=== PATIENT | female | born 1970 | race Caucasian/White ===

== ENCOUNTER 2019-08-19 07:23 | Outpatient (CLI) | payer OTHER, SELFPAY ==
--- NOTE | 2019-08-19 | ECHO_ITS ---
Patient Info Name: Tanvi Chanel Age: 48 years : 1970 Gender: Female Ht: 69 in Wt: 250 lbs BSA: 2.40 m2 HR: 76 bpm BP: 100 / 80 mmHg Heart Rhythm: Sinus Rhythm Technical Quality: Good Exam Date: 08/19/2019 8:04 AM [facility]am [facility] Patient Status: Outpatient Admit Date: 08/19/2019 Staff Ordering Physician: PHYSICIAN NOT ON STAFF, NONSTAFF Machine Sole Leveler: Ela Hoskins RDCS Attending Provider: PHYSICIAN NOT ON STAFF, NONSTAFF Exam Type: CA echo doppler color flow Study Info Indications R00.2 - Palpitations Complete two-dimensional, color flow and Doppler transthoracic echocardiogram is performed. Summary 1. Essentially unremarkable 2D/Doppler echocardiogram. Left Ventricle Left ventricular chamber dimension is normal. Left ventricular systolic function is normal, estimated at 60-65%. The left ventricular diastolic function is normal. Left Atria Left atrial chamber dimension is normal. Right Atria Right atrial chamber dimension is normal. Aortic Valve The aortic valve is trileaflet. Pulmonic Valve The pulmonic valve is normal. Mitral Valve The mitral valve has normal leaflets. Tricuspid Valve The tricuspid valve leaflets are normal. Pericardium/Pleural The pericardium appears normal. Aorta The aortic root size at the sinus of Valsalva is normal. Left Ventricular Outflow Tract Name Value Normal LVOT 2D LVOT Diameter 1.9 cm LVOT Doppler LVOT Peak Gradient 6 mmHg LVOT Mean Gradient 3 mmHg LVOT VTI 25 cm LVOT VTI/AV VTI Ratio 0.9 LVOT Stroke Volume 71 ml LVOT CO 4.9 l/min LVOT CI 2.0 l/min/m2 Pulmonic Valve Name Value Normal RVOT Doppler RVOT Peak Gradient 3 mmHg PV Doppler PV Peak Gradient 4 mmHg Mitral Valve Name Value Normal MV Doppler MV Decel Glenn 576 cm/s2 MV PHT 33 ms MV Area (PHT) 6.6 cm2 4.0-5.0 MV Diastolic Function MV E Peak Velocity 66 cm/s MV A Peak Velocity 51 cm/s MV E/A 1.3 MV Decel Time 115 ms Tricuspid Valve
== END 2019-08-19 07:24 | disposition home or self-care (01) ==
DX: R00.2 Palpitations (principal)
CPT/HCPCS: 93306

== ENCOUNTER 2019-10-08 10:00 | Outpatient (RCR) | payer OTHER, SELFPAY ==
--- NOTE | 2019-08-15 13:29 | PTOPEVAL ---
INITIAL PHYSICAL THERAPY EVALUATION and PLAN OF CARE Thank you for referring Tanvi to [facility]. She will be seen in PT 2x/wk x 4 wks. Please review, sign, date and return this plan of care NORI. I agree with and certify that the following plan of care is medically necessary. Referring Physician Date Admitting Provider: Attending Provider: PHYSICIAN NOT ON STAFF Referring Provider: *PT Outpatient Evaluation Start: 08/15/19 09:47 Freq: Status: Active Protocol: Document 08/15/19 09:45 SARAVANAN (Rec: 08/15/19 10:59 [email or web address] [id number]) Therapy Assessment Status Assessment Status Assessment Status Evaluation Outpatient Past Medical History Neurological History Hx Migraine Yes Cardiovascular History Hx Hypertension Yes Respiratory History Hx Asthma Yes: weather related Gastrointestinal History Hx Gastroesophageal Reflux Disease Yes Hx Irritable Bowel Yes Genitourinary History Hx Genitourinary Disorders No Significant History Musculoskeletal History Hx Fibromyalgia Yes Hx Orthopedic Surgery Yes: microdiscectomy, laminectomy L4/5 Endocrine History Hx Endocrine Disorders No Significant History Psychosocial History Hx Depression Yes Evaluation Information Problem Diagnosis s/p lumbar laminectomy, microdiskectomy L4/5, chronic LBP Onset 04/11/19 Subjective Information April 2018 - chiropractor - Query Text:As Reported By Patient/ student adjusted - couldn't Family get out of bed next day, couldn't bend fwd, lifting is difficulty, standing, before sitting was worse - now that is better than standing. Failed conservative treatment - needed surgery Since surgery - was good until went back to work. When she went back to work - 10 hr days - sciatic pain returned into L leg - L hallux numbness Restricted duties now - 6 hr days L SIJ/buttock area feels like it is stuck all day long - sciatic pain - all the way down to the toes - comes laterally into peroneal muscles now Sleeping - difficulty getting comfortable
--- NOTE | 2019-09-24 09:57 | PCPTNOTE ---
Patient called & cancelled scheduled appointment this date due to Covid 19.
--- NOTE | 2019-10-08 11:49 | PTOPEVAL ---
PHYSICAL THERAPY DISCHARGE SUMMARY Thank you for referring Leila to [facility] [place]. She was seen for a total of 8 visits. Progressed has been made towards goals set. She is independent and compliant with HEP - which she is to continue with. I agree with Leila's discharge from PT. Referring Physician Date Admitting Provider: Attending Provider: PHYSICIAN NOT ON STAFF Referring Provider: *PT Outpatient Evaluation Start: 08/15/19 09:47 Freq: Status: Active Protocol: Document 10/08/19 10:05 SARAVANAN (Rec: 10/08/19 11:48 [email or web address] [email or web address]) Therapy Assessment Status Assessment Status Assessment Status Discharge Evaluation Information Problem Subjective Information Leila reports the numbness is Query Text:As Reported By Patient/ still present in L big toes Family but it is a little bit better. L LE sensation/discomfort is not constant any more. She is now walking the dog on an usual basis - distance varies 1/2 - 1 mile but will always be limping when done. Cramping during the day with L leg is lessening with flossing stretching. Pain Assessment Timing of Pain Assessment Timing of Pain Assessment Assessment Pain Scale Pain Scale Used Numeric (1 - 10) Self Report Pain Assessment Lower Back Reported Pain Level 5 Pain Description Stabbing,Tightness Lowest Pain Intensity 3 Greatest Pain Intensity 9 Pain Aggravating Factors Walking Pain Score Pain Score 5: Self Report Cervical and Lumbar ROM Lumbar ROM Lumbar Flexion (0-90) 35 Query Text:Active in Degrees Lumbar Extension (0-40) 20 Query Text:Active in Degrees Lumbar Lateral Flexion Right (0-40) 15 Query Text:Active in Degrees Lumbar Lateral Flexion Left (0-40) 15 Query Text:Active in Degrees Lumbar Comments increased discomfort with movement - with flexion - stabbing spine pain, with side bending soreness Equal SIJ mobility present with trunk motion Palpation Assessment Palpation Palpation Tenderness present at sacral base - bilat, with P-A glide, with P-A glide L5 Equal mobility with lateral/side glide L5/S1- but tenderness with L to R motion
== END 2019-10-29 12:31 | disposition home or self-care (01) ==
LOC: ANHPT 10:00
DX: M54.5 Low back pain (principal); G89.29 Other chronic pain; Z98.890 Other specified postprocedural states
CPT/HCPCS: 97014; 97110; 97140; 97162; G0283